=== PATIENT | female | born 1980 | race Caucasian/White ===

== ENCOUNTER 2018-07-24 18:57 | Observation (INO) ==
--- NOTE | 2018-07-24 20:08 | Emergency Department Note ---
Disposition Clinical Impression: Chest pain Qualifiers: Chest pain type: unspecified Qualified Code(s): R07.9 - Chest pain, unspecified Disposition: Admitted As Inpatient Condition: Good Referrals: Kaelyn Pedraza CNP [Primary Care Provider] - Forms: ED Satisfaction Letter Time of Disposition: 21:21 Chest Pain HPI - General Chief Complaint: ED Chest Pain Stated Complaint: Chest Pain Time Seen by Provider: 07/24/18 19:56 Source: patient Mode of arrival: ambulatory Limitations: no limitations Vital Signs Reviewed: Yes Nursing Notes Reviewed: Yes - History of Present Illness HPI Narrative: 37-year-old female with previous history of 3 MIs without stents, hypotension that is chronic, hyperlipidemia, seizures on therapy arrives to the emergency department with complaint of retrosternal chest pain associated shortness of breath. Patient states been intermittent over the course the past few days he will she has been at rest. The patient states this progressively worsened over the course the past 24 hours so she decided to come to the emergency Department is evening. She denies any previous history of DVT or PE, no hemoptysis, unilateral excellent, recent surgeries or immobilizations. Patient is resting comfortably in the room. She also states she took 1281 mg baby aspirin today. Severity scale (1-10): 0 - Related Data Home Medications Medication Instructions Recorded Confirmed Asenapine Maleate [Saphris] 10 mg SL DAILY 01/07/16 01/07/16 EPINEPHrine [Epipen 2-Jj] 0.3 mg IJ AD PRN 01/07/16 01/07/16 OXcarbazepine [Oxcarbazepine] 600 mg PO HS 01/07/16 01/07/16 RX: LORazepam [Ativan] 1 mg PO BID PRN 01/07/16 01/07/16 SUMAtriptan succinate [Sumatriptan 50 mg PO DAILY PRN 01/07/16 01/07/16 Succinate] Previous Rx's Medication Instructions Recorded Ondansetron ODT [Zofran ODT] 4 mg SL Q6HR PRN #15 tab.rapdis 05/02/16 Oxycodone HCl/Acetaminophen 1 - 2 each PO Q6H PRN #8 tablet 05/02/16 [Percocet 5-325 mg Tablet] Ondansetron ODT [Zofran ODT] 4 mg SL Q6HR PRN #7 tab.rapdis 09/21/17 Allergies Allergy/AdvReac Type Severity Reaction Status Date / Time Bee Pollen Allergy Anaphylaxis Verified 09/21/17 19:08 codeine Allergy Rash Verified 09/21/17 19:08 hydrocodone [From Vicodin] Allergy Rash Verified 09/21/17 19:08 nalbuphine [From Nubain] Allergy Rash Verified 09/21/17 19:08 All systems ED: reviewed and negative except as stated. Constitutional: Denies: fever, chills, weakness ENT ED: Denies: dysphagia Cardiovascular: Reports: chest pain, dyspnea on exertion. Denies: edema, syncope Respiratory: Reports: dyspnea. Denies: cough, sputum production Gastrointestinal: Denies: abdominal pain Genitourinary: Denies: urgency, dysuria Musculoskeletal: Denies: back pain Integumentary: Denies: rash Neurological: Denies: headache Chest Pain PMH - Past Medical History Medical history: Reports: migraine, myocardial infarction, seizures, other Surgical history: Reports: non-contributory Psychiatric history: Reports: bipolar - Social History Smoking Status: Current every day smoker Alcohol use: Reports: none Drug use: Reports: none Physical Exam - General Limitations: no limitations General appearance: alert, in no apparent distress - Head Head exam: atraumatic, normocephalic, normal inspection - Eye Eye exam: Present: normal appearance, PERRL, EOMI - ENT ENT exam: normal exam, normal oropharynx, mucous membranes moist - Neck Neck exam: Present: normal inspection, full ROM, trachea midline - Chest Chest inspection: Present: normal inspection, symmetric chest wall rise - Respiratory Respiratory exam: Present: normal lung sounds bilaterally - Cardiovascular Cardiovascular exam: Present: regular rate, normal rhythm, normal heart sounds - Abdominal Exam Abdominal exam: Present: soft, Non-Tender. Absent: tenderness, distention, gu arding, rebound, rigidity - Extremities Exam Extremities exam: Present: normal inspection, full ROM, normal capillary refill. Absent: tenderness, pedal edema - Neurological Exam Neurological exam: Present: alert, oriented X3 - Skin Skin exam: Present: warm, dry, intact, normal color Course Vital Signs Temperature 97.5 F L 07/24/18 19:00 Pulse Rate 64 07/24/18 19:00 Respiratory Rate 18 07/24/18 19:00 Blood Pressure 107/68 07/24/18 19:00 O2 Sat by Pulse Oximetry 100 07/24/18 19:00 Temperature 97.5 F L 07/24/18 19:00 Pulse Rate 51 07/24/18 21:07 Respiratory Rate 20 07/24/18 21:07 Blood Pressure 117/69 07/24/18 21:07 O2 Sat by Pulse Oximetry 100 07/24/18 21:07 Oxygen Delivery Oxygen Delivery Room Air Chest Pain - MDM Narrative Medical decision making narrative: Patient's workup in the emergency department given streets no acute process. The patient had a salicylate level checked as she had taken multiple doses of baby aspirin prior to arrival. Given the patient's previous history of AL combined with her chest pain and previous history, we will admit the patient to the hospital for further observation and care. Patient made aware and agrees to plan. No further questions or concerns. Accepted by Dr. Proctor. - Lab Data Lab results reviewed: Yes I reviewed the patient's lab results. Result diagrams: 07/24/18 20:15 07/24/18 20:15 Lab Results 07/24/18 07/24/18 07/24/18 Range/Units 20:15 20:15 20:15 WBC 7.8 (4.3-11.1) K/mcL RBC 3.69 L (3.82-4.97) M/mcL Hgb 12.3 (11.5-15.4) g/dL Hct 37.3 (35.3-44.9) % MCV 101.1 H (83.0-100.0) fL MCH 33.3 (28.0-33.3) pg MCHC 33.0 (31.6-35.5) g/dL RDW 12.3 (11.5-14.5) % Plt Count 233 (140-400) K/mcL MPV 10.0 (9.4-12.4) fL Immature Gran % 0.4 (0-4) % Seg Neutrophils % 45.9 % Lymphocytes % 42.7 % Monocytes % 8.1 % Eosinophils % 1.9 % Basophils % 1.0 % Neutrophils # 3.6 (1.6-8.9) K/mcL Lymphocytes # 3.3 (0.6-4.6) K/mcL Monocytes # 0.6 (0.0-1.3) K/mcL Eosinophils # 0.2 (0.0-0.6) K/mcL Basophils # 0.1 (0.0-0.2) K/mcL PT 11.6 (9.4-12.1) Seconds INR 1.0 APTT 30.4 (26.0-36.0) Seconds Sodium 143 (136-145) mEq/L Potassium 3.6 (3.5-5.1) mEq/L Chloride 112 H (98-107) mEq/L Carbon Dioxide 26 (23-29) mEq/L BUN 6 (6-20) mg/dL Creatinine 0.53 L (0.60-1.20) mg/dL Est GFR ( Amer) > 60 (> 60) Est GFR (Non-Af Amer) > 60 (> 60) BUN/Creatinine Ratio 11 (6-26) Glucose 88 (70-105) mg/dL Calculated Osmolality 293 (280-300) Calcium 9.3 (8.6-10.3) mg/dL Troponin I < 0.03 (< 0.04) ng/mL Salicylates < 2.5 L (15.0-30.0) mg/dL - Radiology Data Radiology results reviewed: Yes I reviewed the patient's radiology results. Chest X-Ray 07/24/18 19:02 IMPRESSION: No acute airspace disease identified. D/ / Kranthi Beavers / Kranthi Beavers Interpreting Provider: Kranthi Beavers - EKG Data EKG attestation: Yes I reviewed and interpreted this EKG. EKG results narrative: Current 61 beats for minute. Normal sinus rhythm. No ST elevation but ST elevation that is noted. His found in leads 2, 3, aVF, V3, V4, V5, V6.
[2018-07-24 20:28] LABS: Basophils # 0.1 K/mcL (0.0-0.2); Eosinophils # 0.2 K/mcL (0.0-0.6); Eosinophils % 1.9 %; Hematocrit 37.3 % (35.3-44.9); Hemoglobin 12.3 g/dL (11.5-15.4); Immature Granulocytes % 0.4 % (0-4); Lymphocytes # 3.3 K/mcL (0.6-4.6); Lymphocytes % 42.7 %; Mean Corpuscular Hemoglobin 33.3 pg (28.0-33.3); Mean Corpuscular Volume 101.1 fL (83.0-100.0); Monocytes # 0.6 K/mcL (0.0-1.3); Monocytes % 8.1 %; Neutrophils # 3.6 K/mcL (1.6-8.9); Platelet Count 233 K/mcL (140-400); Red Blood Count 3.69 M/mcL (3.82-4.97); Red Cell Distribution Width 12.3 % (11.5-14.5); Segmented Neutrophils % 45.9 %
[2018-07-24 20:35] LABS: Prothrombin Time 11.6 Seconds (9.4-12.1)
[2018-07-24 20:38] LABS: Activated Partial Thrombo Time 30.4 Seconds (26.0-36.0)
[2018-07-24 20:50] LABS: BUN/Creatinine Ratio 11 (6-26); Blood Urea Nitrogen 6 mg/dL (6-20); Calcium 9.3 mg/dL (8.6-10.3); Carbon Dioxide 26 mEq/L (23-29); Chloride 112 mEq/L (98-107); Glucose 88 mg/dL (70-105); Osmolality,Calculated 293 (280-300); Potassium 3.6 mEq/L (3.5-5.1); Salicylate < 2.5 mg/dL (15.0-30.0); Sodium 143 mEq/L (136-145); Troponin I < 0.03 ng/mL (< 0.04); eGFR For Non-African Americans > 60 (> 60)
--- NOTE | 2018-07-24 21:09 | Emergency Department Note ---
Disposition Clinical Impression: Chest pain Qualifiers: Chest pain type: unspecified Qualified Code(s): R07.9 - Chest pain, unspecified Disposition: Admitted As Inpatient Condition: Good Forms: ED Satisfaction Letter Time of Disposition: 21:09 General Adult HPI - General Chief complaint: ED Chest Pain Stated complaint: Chest Pain Time Seen by Provider: 07/24/18 19:56 Source: patient Mode of arrival: ambulatory Limitations: no limitations - History of Present Illness Pain Scale: 0 - Related Data Home Medications Medication Instructions Recorded Confirmed Asenapine Maleate [Saphris] 10 mg SL DAILY 01/07/16 01/07/16 EPINEPHrine [Epipen 2-Jj] 0.3 mg IJ AD PRN 01/07/16 01/07/16 LORazepam [Ativan] 1 mg PO BID PRN 01/07/16 01/07/16 OXcarbazepine [Oxcarbazepine] 600 mg PO HS 01/07/16 01/07/16 SUMAtriptan succinate [Sumatriptan 50 mg PO DAILY PRN 01/07/16 01/07/16 Succinate] Previous Rx's Medication Instructions Recorded Ondansetron ODT [Zofran ODT] 4 mg SL Q6HR PRN #15 tab.rapdis 05/02/16 Oxycodone HCl/Acetaminophen 1 - 2 each PO Q6H PRN #8 tablet 05/02/16 [Percocet 5-325 mg Tablet] Ondansetron ODT [Zofran ODT] 4 mg SL Q6HR PRN #7 tab.rapdis 09/21/17 Allergies Allergy/AdvReac Type Severity Reaction Status Date / Time Bee Pollen Allergy Anaphylaxis Verified 09/21/17 19:08 codeine Allergy Rash Verified 09/21/17 19:08 hydrocodone [From Vicodin] Allergy Rash Verified 09/21/17 19:08 nalbuphine [From Nubain] Allergy Rash Verified 09/21/17 19:08 Constitutional: Denies: fever, chills, weakness ENT ED: Denies: dysphagia Cardiovascular: Reports: chest pain, dyspnea on exertion. Denies: edema, syncope Respiratory: Reports: dyspnea. Denies: cough, sputum production Gastrointestinal: Denies: abdominal pain Genitourinary: Denies: urgency, dysuria Musculoskeletal: Denies: back pain Integumentary: Denies: rash Neurological: Denies: headache Past Medical History - Past Medical History Medical history: Reports: migraine, myocardial infarction, seizures, other Surgical history: Reports: non-contributory Psychiatric history: Reports: bipolar - Social History Smoking Status: Current every day smoker Smokeless Tobacco Status: No Alcohol use: Reports: none Drug use: Reports: none Physical Exam - General Limitations: no limitations General appearance: alert, in no apparent distress Course Vital Signs Temperature 97.5 F L 07/24/18 19:00 Pulse Rate 64 07/24/18 19:00 Respiratory Rate 18 07/24/18 19:00 Blood Pressure 107/68 07/24/18 19:00 O2 Sat by Pulse Oximetry 100 07/24/18 19:00 Temperature 97.5 F L 07/24/18 19:00 Pulse Rate 64 07/24/18 19:00 Respiratory Rate 18 07/24/18 19:00 Blood Pressure 107/68 07/24/18 19:00 O2 Sat by Pulse Oximetry 100 07/24/18 19:00 Oxygen Delivery Oxygen Delivery Room Air Medical Decision Making - Lab Data Result diagrams: 07/24/18 20:15 07/24/18 20:15 Lab Results 07/24/18 07/24/18 07/24/18 Range/Units 20:15 20:15 20:15 WBC 7.8 (4.3-11.1) K/mcL RBC 3.69 L (3.82-4.97) M/mcL Hgb 12.3 (11.5-15.4) g/dL Hct 37.3 (35.3-44.9) % MCV 101.1 H (83.0-100.0) fL MCH 33.3 (28.0-33.3) pg MCHC 33.0 (31.6-35.5) g/dL RDW 12.3 (11.5-14.5) % Plt Count 233 (140-400) K/mcL MPV 10.0 (9.4-12.4) fL Immature Gran % 0.4 (0-4) % Seg Neutrophils % 45.9 % Lymphocytes % 42.7 % Monocytes % 8.1 % Eosinophils % 1.9 % Basophils % 1.0 % Neutrophils # 3.6 (1.6-8.9) K/mcL Lymphocytes # 3.3 (0.6-4.6) K/mcL Monocytes # 0.6 (0.0-1.3) K/mcL Eosinophils # 0.2 (0.0-0.6) K/mcL Basophils # 0.1 (0.0-0.2) K/mcL PT 11.6 (9.4-12.1) Seconds INR 1.0 APTT 30.4 (26.0-36.0) Seconds Sodium 143 (136-145) mEq/L Potassium 3.6 (3.5-5.1) mEq/L Chloride 112 H (98-107) mEq/L Carbon Dioxide 26 (23-29) mEq/L BUN 6 (6-20) mg/dL Creatinine 0.53 L (0.60-1.20) mg/dL Est GFR ( Amer) > 60 (> 60) Est GFR (Non-Af Amer) > 60 (> 60) BUN/Creatinine Ratio 11 (6-26) Glucose 88 (70-105) mg/dL Calculated Osmolality 293 (280-300) Calcium 9.3 (8.6-10.3) mg/dL Troponin I < 0.03 (< 0.04) ng/mL Salicylates < 2.5 L (15.0-30.0) mg/dL Attestation Statement - Attestation Attestation: I examined this patient and my medical decision-making was reviewed with the Resident Physician. I agree with the documented findings, disposition and treatment plan as described except to the extent set forth below. 37 year old female presents to the ED with complaints of chest pain that is similar to the chest pain has had in the past with her acute coronary events. Luiginet is chest apin free now, negative troponoin, but has some mild global drepssions on EKG. We will admit to medicine for chestp ain r/o ACS workup
[2018-07-24] MEDS ORDERED: Naloxone 0.4 MG/ML INJ IVP PRN (23:25)
--- NOTE | 2018-07-24 23:52 | Internal Med History&Physical ---
Date of Encounter: 07/25/18 Time of Encounter: 22:30 Internal Medicine - H&P: HPI Chief complaint: Chest Pain Admitted From: Home Plans for Post Hospital Care: Home History of present illness: Ms. Lee is a 37 year old female with past medical history significant for MN x3 no history of coronary intervention, chronic hypotension, paroxysmal atrial fibrillation, crohns disease, seizure disorder, migraines, bipolar disorder, goiter, and tobacco abuse who presents for complaints of left sided pressure/pinching chest pain rated at 9/10 when at its worst. Pain initially started out earlier today intermittently and later became more constant and worse in intensity. Pain was associated with shortness of breath and diaphoresis. Reports taking 12 total 81mg aspirin at home at scattered intervals throughout the day prior to arrival. Pain has gradually continued to improve and reports only minimal pain at this time and no other associated symptoms. Currently denies any headache, chest pain, shortness of breath, abdominal pain, bowel or bladder changes. ER reported EKG as sinus rhythm with st depression noted in multiple leads. ER also obtained chest xray which showed no acute airspace disease identified. No medications were received in ER as pain was resolving and patient took aspirin at home. Had stress test completed in October 2016 that was negative for ischemia. Also had echocardiogram compl eted in December 2016 with a 60% EF. Reports history of seizure disorder and has had no episodes for the last five years. Follows regularly with PCP, Cardiology, Gastroenterology, Neurology, Endocrinology, and Psychiatry. Past Med Surg Social Fam HX - Past Medical History Medical history: atrial fibrillation, migraine, myocardial infarction, seizures, other Additional medical history: crohns, hypotension, goiter Psychiatric history: bipolar - Past Surgical History Surgical History: cholecystectomy, other Additional surgical history: right groin lymph node removed - Social History Smoking Status: Current every day smoker Smokeless Tobacco Status: Yes Alcohol use: none Drug use: none - Family History Mother History Unknown: Yes Internal Medicine - H&P: Meds EPINEPHrine [Epipen 2-Jj] 0.3 mg IJ AD PRN 01/07/16 [History] LORazepam [Ativan] 1 mg PO TID PRN 01/07/16 [History] OXcarbazepine [Oxcarbazepine] 300 mg PO BID 07/24/18 [History] Potassium Chloride [K-Tab ER] 20 meq PO BID 07/24/18 [History] Topiramate [Topamax] 25 mg PO BID 07/24/18 [History] Allergy/AdvReac Type Severity Reaction Status Date / Time Bee Pollen Allergy Anaphylaxis Verified 09/21/17 19:08 codeine Allergy Rash Verified 09/21/17 19:08 hydrocodone [From Vicodin] Allergy Rash Verified 09/21/17 19:08 nalbuphine [From Nubain] Allergy Rash Verified 09/21/17 19:08 All Systems PM: A 10-system review of systems was performed and is negative for pertinent findings except as documented above in the HPI. - Constitutional Vitals: Temp Pulse Resp BP Pulse Ox 97.5 F L 61 20 98/69 100 07/24/18 19:00 07/24/18 22:39 07/24/18 22:46 07/24/18 22:46 07/24/18 22:39 Exam: General: Alert and oriented. Skin:Normal color, no rash, no lesions. HEENT:Pupils equal, round and reactive. Cardiovascular:Normal S1 & S2, no rubs, murmurs or gallops. No JVD. Pulse regular. Lungs:Breath sounds decreased, no wheezes or crackles. Abdomen:Soft, non-tender, no rigidity. Extremities:No deformity, no edema or tenderness, no joint swelling or clubbing. Neurological:Normal cognition and motor skills. Pulses:Carotid and radial pulses normal +2. Rest of the physical exam is non contributory. Internal Med - H&P Results - Labs CBC & Chem 7: 07/24/18 20:15 07/24/18 20:15 Labs: Short CBC 07/24/18 Range/Units 20:15 WBC 7.8 (4.3-11.1) K/mcL Hgb 12.3 (11.5-15.4) g/dL Hct 37.3 (35.3-44.9) % Plt Count 233 (140-400) K/mcL Neutrophils # 3.6 (1.6-8.9) K/mcL BMP 07/24/18 20:15 Sodium 143 Potassium 3.6 Chloride 112 H Carbon Dioxide 26 BUN 6 Creatinine 0.53 L Glucose 88 Calcium 9.3 Cardiac Enzymes 07/24/18 Range/Units 20:15 Troponin I < 0.03 (< 0.04) ng/mL - Impressions ITS Impressions Chest X-Ray 07/24/18 19:02 IMPRESSION: No acute airspace disease identified. D/ / Kranthi Beavers / Kranthi Beavers Interpreting Provider: Kranthi Beavers - Assessment and Plan (1) Chest pain Current Visit: Yes Status: Acute Assessment and plan: Nearly resolved after taking 12 total 81mg aspirin throughout day today at separate intervals. Salicylate level <2.5. Initial troponin negative, serial troponins ordered. Continuous cardiac monitoring. Echocardiogram ordered. Stress test ordered. Qualifiers: Chest pain type: unspecified Qualified Code(s): R07.9 - Chest pain, unspecified (2) Seizure disorder Current Visit: Yes Status: Chronic Assessment and plan: No seizures episodes in last 5 years. Seizure precautions ordered. Resume home medications once verified. (3) History of hypotension Current Visit: Yes Status: Chronic Assessment and plan: Currently normotensive. Monitor blood pressure q4 hours. (4) Bipolar disorder Current Visit: Yes Status: Chronic Assessment and plan: Resume home medications once verified. Qualifiers: Qualified Code(s): F31.9 - Bipolar disorder, unspecified (5) Tobacco abuse Current Visit: Yes Status: Chronic Assessment and plan: History of cigarette and smokeless tobacco. Cessation strongly encouraged. - Time Spent With Patient Total time spent is greater than 50% in coordination of care (as documented) at patient's floor/unit and/or counseling patient:
[2018-07-25] MEDS ORDERED: *HR* LORazepam 1 MG TABLET PO PRN (00:21)
[2018-07-25] MEDS: OXcarbazepine 150 MG TABLET PO SCH ×2 (00:39→07:48)
[2018-07-25] MEDS ORDERED: Topiramate 25 MG TABLET PO SCH (09:00)
[2018-07-25 11:33] LABS: Basophils % 0.7 %; Eosinophils # 0.1 K/mcL (0.0-0.6); Hematocrit 36.3 % (35.3-44.9); Immature Granulocytes % 0.2 % (0-4); Lymphocytes % 33.2 %; Mean Corpuscular HGB Conc 33.1 g/dL (31.6-35.5); Mean Corpuscular Hemoglobin 33.6 pg (28.0-33.3); Mean Corpuscular Volume 101.7 fL (83.0-100.0); Mean Platelet Volume 10.2 fL (9.4-12.4); Monocytes # 0.5 K/mcL (0.0-1.3); Monocytes % 8.5 %; Neutrophils # 3.3 K/mcL (1.6-8.9); Platelet Count 220 K/mcL (140-400); Red Blood Count 3.57 M/mcL (3.82-4.97); Red Cell Distribution Width 12.4 % (11.5-14.5); Segmented Neutrophils % 55.4 %
[2018-07-25 11:45] LABS: BUN/Creatinine Ratio 9 (6-26); Blood Urea Nitrogen 6 mg/dL (6-20); Calcium 9.2 mg/dL (8.6-10.3); Carbon Dioxide 28 mEq/L (23-29); Chloride 112 mEq/L (98-107); Glucose 90 mg/dL (70-105); Osmolality,Calculated 297 (280-300); Potassium 3.7 mEq/L (3.5-5.1); Sodium 145 mEq/L (136-145); Troponin I < 0.03 ng/mL (< 0.04); eGFR For Non-African Americans > 60 (> 60)
--- NOTE | 2018-07-25 11:45 | Internal Med Progress Note ---
Hospitalist Progress Note - Encounter Date of Encounter: 07/25/18 Time of Encounter: 11:43 - Subjective Interval History: Patient seen and examined in the room. She has no chest pain currently. - Exam Vitals: Temp Pulse Resp BP Pulse Ox 98.4 F 60 16 102/65 99 07/25/18 10:36 07/25/18 10:36 07/25/18 10:36 07/25/18 10:36 07/25/18 10:36 Exam: General: Alert and oriented. Skin:Normal color, no rash, no lesions. HEENT:Pupils equal, round and reactive. Cardiovascular:Normal S1 & S2, no rubs, murmurs or gallops. No JVD. Pulse regular. Lungs:Breath sounds decreased, no wheezes or crackles. Abdomen:Soft, non-tender, no rigidity. Extremities:No deformity, no edema or tenderness, no joint swelling or clubbing. Neurological:Normal cognition and motor skills. Pulses:Carotid and radial pulses normal +2. Rest of the physical exam is non contributory. - Assessment and Plan (1) Chest pain Current Visit: Yes Status: Acute Assessment and Plan: Nearly resolved after taking 12 total 81mg aspirin throughout day today at separate intervals. Salicylate level <2.5. Initial troponin negative, serial troponins ordered. Continuous cardiac monitoring. Echocardiogram ordered. Stress test ordered. (2) Seizure disorder Current Visit: No Status: Chronic Assessment and Plan: No seizures episodes in last 5 years. Seizure precautions ordered. Resume home medications. (3) History of hypotension Current Visit: No Status: Chronic Assessment and Plan: Currently normotensive. Monitor blood pressure q4 hours. (4) Bipolar disorder Current Visit: No Status: Chronic Assessment and Plan: Resume home medications. (5) Tobacco abuse Current Visit: Yes Status: Chronic Assessment and Plan: History of cigarette and smokeless tobacco. Cessation strongly encouraged. DVT Prophylaxis: Ambulation. - Time Spent with Patient Total time spent is greater than 50% in coordination of care (as documented) at patient's floor/unit and/or counseling patient: Greater than 35 minutes Plan of Care Discussed with: patient Internal Medicine: Result - Labs CBC & Chem 7: 07/25/18 10:34 07/24/18 20:15 Labs: Short CBC 07/24/18 07/25/18 Range/Units 20:15 10:34 WBC 7.8 6.0 (4.3-11.1) K/mcL Hgb 12.3 12.0 (11.5-15.4) g/dL Hct 37.3 36.3 (35.3-44.9) % Plt Count 233 220 (140-400) K/mcL Neutrophils # 3.6 3.3 (1.6-8.9) K/mcL BMP 07/24/18 20:15 Sodium 143 Potassium 3.6 Chloride 112 H Carbon Dioxide 26 BUN 6 Creatinine 0.53 L Glucose 88 Calcium 9.3 Cardiac Enzymes 07/24/18 07/25/18 Range/Units 20:15 03:42 Troponin I < 0.03 < 0.03 (< 0.04) ng/mL - ABG Interpretation ABG results: PT/INR, D-dimer PT 11.6 Seconds (9.4-12.1) 07/24/18 20:15 - Impressions Impressions Chest X-Ray 07/24/18 19:02 IMPRESSION: No acute airspace disease identified. D/ / Kranthi Beavers / Kranthi Beavers Interpreting Provider: Kranthi Beavers Consult Discharge Plan - Plan Referrals: Kaelyn Pedraza, [employer] [Primary Care Provider] - (1) Chest pain Qualifiers: Chest pain type: unspecified Qualified Code(s): R07.9 - Chest pain, unspecified (4) Bipolar disorder Qualifiers: Qualified Code(s): F31.9 - Bipolar disorder, unspecified
[2018-07-25 14:48] VITALS: BP 111/74
--- NOTE | 2018-07-25 15:57 | Discharge Summary ---
- NOTES TO OUTPATIENT PROVIDER Notes to Outpatient Provider: f/u with PCP within a week. Orders not resulted at time of discharge: Pending orders 07/24/18 19:02 ECG 12 lead ECG [ECG] Stat 07/24/18 23:31 SP pharm nuclear stress Routine 07/26/18 06:00 NM brett perf SPECT multi [NM] Routine Date of Encounter: 07/25/18 Time of Encounter: 15:56 - Discharge Diagnosis (1) Chest pain Priority: Primary Status: Acute Qualifiers: Chest pain type: unspecified Qualified Code(s): R07.9 - Chest pain, unspecified (2) Seizure disorder Priority: Secondary Status: Chronic (3) History of hypotension Priority: Secondary Status: Chronic (4) Bipolar disorder Priority: Secondary Status: Chronic Qualifiers: Qualified Code(s): F31.9 - Bipolar disorder, unspecified (5) Tobacco abuse Priority: Secondary Status: Chronic Hospital course: Ms. Lee is a 37 year old female with past medical history significant for [place] x3 no history of coronary intervention, chronic hypotension, paroxysmal atrial fibrillation, crohns disease, seizure disorder, migraines, bipolar disorder, goiter, and tobacco abuse who presents for complaints of left sided pressure/pinching chest pain rated at 9/10 when at its worst. Pain initially started out earlier today intermittently and later became more constant and worse in intensity. Pain was associated with shortness of breath and diaphoresis. Reports taking 12 total 81mg aspirin at home at scattered intervals throughout the day prior to arrival. Pain has gradually continued to improve and reports only minimal pain at this time and no other associated symptoms. Currently denies any headache, chest pain, shortness of breath, abdominal pain, bowel or bladder changes. ER reported EKG as sinus rhythm with st depression noted in multiple leads. ER also obtained chest xray which showed no acute airspace disease identified. No medications were received in ER as pain was resolving and patient took aspirin at home. Had stress test completed in October 2016 that was negative for ischemia. Also had echocardiogram completed in December 2016 with a 60% EF. Reports history of seizure disorder and has had no episodes for the last five years. Further test showed negative troponin for 3 sets. ECHO was done and was unremarkable. Pt chest pain has resolved and she requests being discharged home and f/u with PCP for stress test. We will discharge her and instructed her to see PCP within a week. Discharge discussed with: patient Time spent discussing smoking cessation with patient: more than 10 minutes - Time Spent with Patient Total time spent providing and/or coordinating discharge services: Time spent: Greater than 30 minutes - Discharge Medications Prescriptions: Continued LORazepam [Ativan] 1 mg PO TID PRN PRN Reason: Anxiety EPINEPHrine [Epipen 2-Jj] 0.3 mg IJ AD PRN PRN Reason: Anaphylaxis OXcarbazepine [Oxcarbazepine] 300 mg PO BID Potassium Chloride [K-Tab ER] 20 meq PO BID Topiramate [Topamax] 25 mg PO BID Home Medications: EPINEPHrine [Epipen 2-Jj] 0.3 mg IJ AD PRN 01/07/16 [History] LORazepam [Ativan] 1 mg PO TID PRN 01/07/16 [History] OXcarbazepine [Oxcarbazepine] 300 mg PO BID 07/24/18 [History] Potassium Chloride [K-Tab ER] 20 meq PO BID 07/24/18 [History] Topiramate [Topamax] 25 mg PO BID 07/24/18 [History] Allergies/Adverse Reactions: Allergy/AdvReac Type Severity Reaction Status Date / Time Bee Pollen Allergy Anaphylaxis Verified 09/21/17 19:08 codeine Allergy Rash Verified 09/21/17 19:08 hydrocodone [From Vicodin] Allergy Rash Verified 09/21/17 19:08 nalbuphine [From Nubain] Allergy Rash Verified 09/21/17 19:08 Date of admission: 07/24/18 21:26 Primary care physician: Kaelyn Pedraza CNP Anticipated date of discharge: 07/25/18 - Constitutional Vitals: Temp Pulse Resp BP Pulse Ox 98.8 F 66 16 111/74 97 07/25/18 14:45 07/25/18 14:45 07/25/18 14:45 07/25/18 14:45 07/25/18 14:45 General appearance: Present: A&O X 3 Exam: General: Alert and oriented. Skin:Normal color, no rash, no lesions. HEENT:Pupils equal, round and reactive. Cardiovascular:Normal S1 & S2, no rubs, murmurs or gallops. No JVD. Pulse regular. Lungs:Breath sounds decreased, no wheezes or crackles. Abdomen:Soft, non-tender, no rigidity. Extremities:No deformity, no edema or tenderness, no joint swelling or clubbing. Neurological:Normal cognition and motor skills. Pulses:Carotid and radial pulses normal +2. Rest of the physical exam is non contributory. - Patient Status Disposition: Home, Self-Care Condition: Good Functional capacity at discharge: independent ambulation Overall status at discharge: patient is progressing back to baseline - Discharge Instructions Follow Up With: Kaelyn Pedraza, REHABILITATION CONSULTANT [Primary Care Provider] - - Diet and Activity Activity: increase activity as tolerated Diet: advance to your usual diet
--- NOTE | 2018-07-26 12:58 | Electrocardiograph Report ---
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
== END 2018-07-25 16:25 | disposition home or self-care (01) ==
LOC: 3BNU 18:57 → EMEROOARM 18:57 → 3BNU 23:15
PROVIDERS: ADMIT Internal Medicine; ATTEND Internal Medicine